=== PATIENT | female | born 1955 | race African-American/Black ===

== ENCOUNTER 2020-08-02 15:57 | Emergency (ER) | payer OTHER, SELFPAY ==
[2020-08-02 16:09] VITALS: BP 128/63; PULSE 78; RESP 16; TEMP 37; O2SAT 99
--- NOTE | 2020-08-02 16:19 | ED.BACK ---
HPI - Back Pain/Injury General Chief Complaint: Urogenital-Female Stated Complaint: r/l side pain Time Seen by Provider: 08/02/20 16:10 History of Present Illness HPI Narrative: Adriana is a 65 yo female with a PMH of renal stones who comes here for both L and R sided back pain. She says it has been going on for months and only happens occasionally mostly in the morning when she is trying to get up out of bed and when she gets moving the pain goes away. Sometimes patient has muscle spasms; she has a primary care physician Related Data Allergies Allergy/AdvReac Type Severity Reaction Status Date / Time No Known Allergies Allergy Verified 08/02/20 16:19 Review of Systems Review of Systems: Narrative: CONSTITUTIONAL: Denies fever, chills, sweats. EYES: Denies visual changes, redness, discharge. ENT: Denies rhinorrhea, congestion, sore throat, otalgia. CARDIOVASCULAR: Denies chest pain, palpitations, edema. RESPIRATORY: Denies dyspnea, wheezing, cough GASTROINTESTINAL: Denies abdominal pain, nausea, vomiting, diarrhea. GENITOURINARY: Denies dysuria, hematuria, abnormal discharge SKIN: Denies rash or itching. NEUROLOGIC: Denies numbness, or focal weakness. PSYCHIATRIC: Denies anxiety or depression. Pain on both sides of the back, primarily in the morning PMFSH Past Medical History Medical History Back pain Family History Family History Other No significant medical problems Social History Social History (Updated 08/02/20 @ 16:23 by Elise Thomas CNP) Smoking status: Never smoker Alcohol intake: never Gender identity (if verbalized by the patient): Female Comments At time of signature, I agree with nursing past medical, surgical, social and family history. There is no relevant family history pertinent to the presenting complaint. Exam Narrative: Exam Narrative: GENERAL: This is a well-nourished, well-developed patient, in mild distress. HEAD: normocephalic, atraumatic. EYES: Sclera clear/white. Vision is grossly intact. EARS: External ears normal, Hearing grossly intact. NOSE: External nose normal without nasal discharge, nares without redness, no rhinorrhea. THROAT: Mucous membranes moist, NECK: Neck supple, non-tender CARDIOVASCULAR: Regular rate and rhythm without murmurs, gallops, or rubs. RESPIRATORY: Clear to auscultation. Breath sounds equal bilaterally. No wheezes, rales, or rhonchi. GASTROINTESTINAL: Abdomen soft, non-tender, SKIN: warm, intact with no suspicious lesions or rash, good texture and turgor. NEURO: awake, alert, and oriented to person, place and time. There were no obvious focal neurologic abnormalities. Steady gait EXTREMITIES: Normal range of motion. BACK: Nontender on palpation without deformity Course Course Emergency Course: Patient comes to [facility] with complaints of bilateral lower pain in the side; it occurs only in the morning and only on occasion UA done no nitrates are leukocytes found, no blood Started on baclofen for muscle pain as there is no indication that she has renal stones or other urinary issues; encourage patient to go to the emergency room or to the primary care physician if symptoms continue she should definitely go to the ER if she develops a fever or severe pain Vital Signs Vital signs: Vital Signs Temperature 98.6 F 08/02/20 16:09 Pulse Rate 78 08/02/20 16:09 Respiratory Rate 16 08/02/20 16:09 Blood Pressure 128/63 08/02/20 16:09 Pulse Oximetry 99 08/02/20 16:09 Temperature 98.6 F 08/02/20 16:09 Pulse Rate 78 08/02/20 16:09 Respiratory Rate 16 08/02/20 16:09 Blood Pressure 128/63 08/02/20 16:09 Pulse Oximetry 99 08/02/20 16:09 MDM - Back Pain/Injury Lab Data Labs: Urine Glucose Negative Reference Range: Negative
== END 2020-08-02 17:00 | disposition home or self-care (01) ==
PROVIDERS: Emergency Provider Nurse Practitioner
DX: R10.9 Unspecified abdominal pain (principal); Z87.442 Personal history of urinary calculi
CPT/HCPCS: 81003; 99213; G0463

== ENCOUNTER 2021-04-06 14:36 | Emergency (ER) | payer OTHER, SELFPAY ==
[2021-04-06 14:43] VITALS: BP 130/57; PULSE 83; RESP 16; TEMP 36.9; O2SAT 98
--- NOTE | 2021-04-06 14:49 | ED.EYEPROB ---
HPI - Eye Problem General Chief complaint: Eye Problems Stated complaint: painful/watery/redness right eye Time Seen by Provider: 04/06/21 14:44 Source: patient and RN notes reviewed Mode of arrival: ambulatory Limitations: no limitations History of Present Illness HPI Narrative: 65-year-old female presents concern for right eye redness, irritation, itching, pain, drainage, crusting. Reports symptoms started 3 to 4 days ago. She denies acute vision changes. She denies injury, trauma, foreign body. She does not wear contact lenses. chief complaint: eye redness Related Data Allergies Allergy/AdvReac Type Severity Reaction Status Date / Time No Known Allergies Allergy Verified 08/02/20 16:19 Review of Systems Review of Systems: CONSTITUTIONAL: Denies malaise, chills, sweats, or fever. EYES: Denies visual changes. Reports right eye redness, irritation, discharge. ENT: Denies rhinorrhea, congestion, sinus pain, otalgia or sore throat. SKIN: Denies rash or itching. NEUROLOGIC: Denies numbness, weakness, or headache. PSYCHIATRIC: Denies anxiety or depression. All systems reviewed & are unremarkable except as noted in HPI and below PMFSH Past Medical History Medical History Back pain Family History Family History Other No significant medical problems Social History Social History (Updated 08/02/20 @ 16:23 by Elise Thomas CNP) Smoking status: Never smoker Alcohol intake: never Gender identity (if verbalized by the patient): Female Comments At time of signature, agree with nursing past medical, surgical, social and family history. There is no relevant family history pertinent to the presenting complaint Exam Narrative: GENERAL: Well-appearing, well-nourished, and in no acute distress. HEAD: Normocephalic, atraumatic. EYES: PERRLA, sclera clear, and EOMI. No nystagmus. Right sclera and conjunctivae injected. Right upper and lower eyelid mildly edematous, no periorbital edema noted. Copious drainage ENT: Nares clear, turbinates pink, no rhinorrhea or epistaxis. Mucous membranes moist. TM pearly espinal with sharp light reflex bilaterally; no tragal tenderness. NECK: Supple. CHEST: No respiratory distress. Speaks in full sentences. HEART: Regular rate and rhythm. SKIN: Warm, dry, no visible rash. NEURO: Alert and oriented x3. PSYCH: Normal mood and affect Course Course Emergency Course: Patient is aware of diagnosis, understands and agrees to treatment plan. Anticipatory guidance given. Patient agrees to follow-up as directed and is aware of reasons to seek care at the emergency department. Portions of this record may have been created with voice recognition software Level of Care: Express Care Visit Vital Signs Vital signs: Vital Signs Temperature 98.4 F 04/06/21 14:43 Pulse Rate 83 04/06/21 14:43 Respiratory Rate 16 04/06/21 14:43 Blood Pressure 130/57 L 04/06/21 14:43 Pulse Oximetry 98 04/06/21 14:43 Temperature 98.4 F 04/06/21 14:43 Pulse Rate 83 04/06/21 14:43 Respiratory Rate 16 04/06/21 14:43 Blood Pressure 130/57 L 04/06/21 14:43 Pulse Oximetry 98 04/06/21 14:43 Reviewed. MDM - Eye Problem MDM Narrative Medical decision making narrative: Consideration of the following conditions may be warranted for the presenting problem, they are not final diagnoses: Bacterial conjunctivitis, allergic conjunctivitis, viral conjunctivitis, foreign body, blepharitis, chalazion, hordeolum, corneal abrasion, preseptal cellulitis, orbital cellulitis. No evidence of proptosis, ophthalmoplegia, vision loss, pain with eye movement. Exam findings show no acute concerns or changes; patient is non-toxic appearing and is in no distress. Patient is appropriate for outpatient treatment and follow-up. Critical Care Time Critical Care Time Critical Care Time: No Disc
== END 2021-04-06 14:53 | disposition home or self-care (01) ==
PROVIDERS: Emergency Provider Nurse Practitioner
DX: H10.9 Unspecified conjunctivitis (principal)
CPT/HCPCS: 99213; G0463

== ENCOUNTER 2021-06-07 17:13 | Emergency (ER) | payer MEDICAID, SELFPAY ==
[2021-06-07 17:24] VITALS: BP 140/69; PULSE 81; RESP 16; TEMP 37.2; O2SAT 99
--- NOTE | 2021-06-07 17:27 | ED.URI ---
HPI - URI/Sore Throat General Chief Complaint: Upper Respiratory Infection Stated Complaint: COUGH/SOB Time Seen by Provider: 06/07/21 17:30 Source: patient, family, RN notes reviewed and old records reviewed Mode of arrival: ambulatory Limitations: no limitations History of Present Illness HPI Narrative: 65-year-old female presents to the [facility] with complaints of cough and intermittent shortness of breath associated with coughing for at least the last 2 weeks. Has tried [id number] products with minimal to no relief. Denies fevers. No abdominal pain or chest pain. Has taken Mucinex with no relief. Related Data Allergies Allergy/AdvReac Type Severity Reaction Status Date / Time No Known Allergies Allergy Verified 06/07/21 17:31 Review of Systems Review of Systems: All systems reviewed & are unremarkable except as noted in HPI and below Constitutional: Constitutional: Reports no additional constitutional complaints, Denies chills, Denies fever(s) and Denies headache(s) Eyes: Eyes: Reports no additional eye complaints ENT: Reports as per HPI, Denies vertigo, Denies dizziness, Denies headache(s), Denies nasal congestion and Denies sore throat Cardiovascular: Cardiovascular: Reports no additional cardiovascular complaints, Denies chest pain, Denies syncope, Denies rapid heart rate and Denies dyspnea Respiratory: Respiratory: Reports as per HPI, Reports cough, Denies dyspnea and Denies wheezing Gastrointestinal: Gastrointestinal: Reports no additional gastrointestinal complaints, Denies abdominal pain, Denies diarrhea, Denies nausea and Denies vomiting Musculoskeletal: Musculoskeletal: Reports no additional musculoskeletal complaints and Denies numbness Integumentary/Breasts: Skin/Breast: Reports system reviewed and no additional complaints, except as docu Neurologic: Reports system reviewed and no additional complaints, except as documented, Denies vertigo, Denies dizziness, Denies syncope, Denies headache(s), Denies focal weakness and Denies numbness Psychiatric: Psychiatric: Reports no additional psychiatric complaints Allergic/Immunologic: Allergic/Immunologic: Reports no additional allergic/immunologic complaints and Denies wheezing PMFSH Past Medical History Medical History Back pain Family History Family History Other No significant medical problems Social History Social History (Reviewed 06/07/21 @ 19:56 by FELIPE Hernández Smoking status: Never smoker Alcohol intake: never Gender identity (if verbalized by the patient): Female Comments At the time of my signature, I reviewed and agree with the nursing past medical, surgical, social, and family history. There is no relevant family history pertinent to the patient complaint. Exam Const: General: cooperative, healthy appearing, no acute distress, well developed and alert Nutritional Appearance: well nourished Orientation/consciousness: patient oriented x3 Limitations: no limitations HENMT: Head: normal to inspection Ears: external ears normal, TM's normal bilaterally and EAC's normal Eyes: Conjunctivae: conjunctivae normal Pupils: Equal, round and reactive pupils present Neck: Neck: normal visual inspection, no lymphadenopathy and no meningeal signs Chest: Chest palpation & inspection: normal inspection of the chest Resp: Effort & Inspection: normal respiratory effort and no use of accessory muscles Auscultation: clear to auscultation bilaterally, no crackles, no rales, no rhonchi and no wheezes Cardio: Rate: regular rate Rhythm: regular rhythm Skin: General skin exam: normal color Rashes: no rashes Wounds: no wounds Neuro: General: patient oriented x3, moves all extremities, no meningeal signs and no focal motor deficits Cranial nerves: Yes Equal, round and reactive pupils present Speech: normal speech Gait exam
== END 2021-06-07 17:50 | disposition home or self-care (01) ==
PROVIDERS: Emergency Provider Nurse Practitioner; PCP Emergency Medicine
DX: J40 Bronchitis, not specified as acute or chronic (principal)
CPT/HCPCS: 99213; G0463

== ENCOUNTER 2021-07-05 17:15 | Emergency (ER) | payer MEDICAID, SELFPAY ==
--- NOTE | ~2021-07-05 | CT_ITS ---
EXAMINATION: CT soft tissue neck w con DATE: 07/05/2021 21:04 INDICATION: Left neck swelling. TECHNIQUE: Computed tomography (CT) of the neck was performed with 75 mL Omnipaque 300 intravenous co ntrast. Automated exposure control and iterative reconstruction technique were employed. The dose-iban gth product was 436.68 mGy-cm. COMPARISON: None FINDINGS: There are nodules in the left thyroid lobe measuring up to 2.6 cm. There are no pathologica lly enlarged lymph nodes. There is 0% stenosis of the proximal internal carotid arteries relative to normal distal artery lumen diameters. The pharynx and larynx are normal. Tooth 30 demonstrates a tye ous lesion and periapical lucencies. There is moderate cervical spondylosis. IMPRESSION: 1. Multinodular goiter. 2. Dental disease. Reviewed, dictated and finalized at location A.
--- NOTE | ~2021-07-05 | XR_ITS ---
EXAMINATION: XR chest 2V DATE: 07/05/2021 20:24 INDICATION: Cough. Left neck swelling and pain. TECHNIQUE: Frontal and lateral views of the chest were obtained. COMPARISON: Chest single view 04/23/2017 FINDINGS: There is no pneumonia, pleural effusion, or pneumothorax. The heart size is normal. IMPRESSION: 1. No acute cardiopulmonary disease. Reviewed, dictated and finalized at location A.
[2021-07-05 17:18] VITALS: BP 127/64; PULSE 80; RESP 14; TEMP 36.6; O2SAT 100
--- NOTE | 2021-07-05 19:11 | ED.NECK ---
HPI - Neck Pain/Injury General Chief Complaint: Neck Pain/Injury Stated Complaint: hard time swallowing, allergies really bad Time Seen by Provider: 07/05/21 18:21 Source: patient Mode of arrival: ambulatory History of Present Illness HPI Narrative: 66 year old female presents today with complaints of swelling to the left neck. Patient states 2 weeks ago she had bronchitis which resolved and today woke up with a sore throat. She saw her primary today who ordered a chest xray. After leaving the office she noticed swelling to the left of her neck and still with pain. Patient denies SOB but does endorse pain with swallowing. She endorses nasal drainage and cough too but denies fevers, body aches, and chills. Related Data Allergies Allergy/AdvReac Type Severity Reaction Status Date / Time No Known Allergies Allergy Verified 06/07/21 17:31 Review of Systems Review of Systems: CONSTITUTIONAL: Denies fever, chills, or sweats. EYES: Denies visual changes, redness, or discharge. ENT: Sore throat, pain with swallowing, swelling to left side of throat. Rhinorrhea, congestion, sore throat, or otalgia. CARDIOVASCULAR: Denies chest pain, palpitations, or edema. RESPIRATORY: Denies cough or dyspnea. GASTROINTESTINAL: Denies abdominal pain, nausea, vomiting, or diarrhea. GENITOURINARY: Denies dysuria or hematuria. SKIN: Denies rash or itching. MUSCULOSKELETAL: Denies back pain, joint pain, or myalgia. NEUROLOGIC: Denies headache, numbness, dizziness, or weakness. PSYCHIATRIC: Denies anxiety or depression. PMFSH Past Medical History Medical History Back pain Family History Family History Other No significant medical problems Social History Social History Smoking status: Never smoker Alcohol intake: never Gender identity (if verbalized by the patient): Female Exam Narrative: GENERAL: Well-appearing, well-nourished, and in no acute distress. HEAD: Normocephalic, atraumatic. EYES: PERRLA and EOMI. ENT: Nares clear, no rhinorrhea or epistaxis. Mucous membranes moist. Oropharynx without tonsillar hypertrophy exudate or other lesions. Bilateral TMs pearly espinal nonbulging NECK: Supple. Swelling noted left of the trachea. No carotid bruits or JVD CHEST: Clear to auscultation. No respiratory distress. No wheezes rales or rhonchi HEART: Regular rate and rhythm. No murmur heard. Normal peripheral pulses. ABDOMEN: Soft, nontender, nondistended, normal active bowel sounds. EXTREMITIES: Normal range of motion. No edema. SKIN: Warm, dry, no rash. NEURO: No focal deficits. Alert and oriented x3. PSYCH: Normal mood and affect. Course Course Emergency Course: Patient without issue during stay. Ct and labs reviewed with patient and aware of need for follow up with primary on Thursday. Dr. Guido notified of need for follow up and labs. He will see patient on in office for further evaluation. Vital Signs Vital signs: Vital Signs Temperature 36.6 C 07/05/21 17:18 Pulse Rate 80 07/05/21 17:18 Respiratory Rate 14 07/05/21 17:18 Blood Pressure 127/64 07/05/21 17:18 Pulse Oximetry 100 07/05/21 17:18 Temperature 36.6 C 07/05/21 17:18 Pulse Rate 80 07/05/21 22:50 Respiratory Rate 18 07/05/21 22:50 Blood Pressure 130/73 07/05/21 22:50 Pulse Oximetry 96 07/05/21 22:50 MDM - Neck Pain/Injury Lab Data Result diagrams: 07/05/21 19:23 07/05/21 20:13 Labs: Lab Results 07/05/21 07/05/21 07/05/21 Range/Units 19:23 19:23 19:23 WBC 6.9 (4.5-10.0) K/mm3 RBC 4.14 L (4.2-5.4) M/mm3 Hgb 12.1 (12.0-15.0) g/dL Hct 37.5 (37.0-47.0) % MCV 90.6 (80-100) fl MCH 29.2 (26-34) pg MCHC 32.3 (32-36) g/dl RDW 13.2 (11.5-14.5) % Plt Count 301 (150-375) k/mm3 MPV 10.4
[2021-07-05 19:28] LABS: Basophils Absolute Auto 0.1 K/mm3 (0.0-0.1); Eosinophils Absolute Auto 0.2 K/mm3 (0-0.3); Eosinophils Percent Auto 2.2 % (0-4.4); Hematocrit 37.5 % (37.0-47.0); Hemoglobin 12.1 g/dL (12.0-15.0); Immature Granulocyte Absolute 0.01 K/mm3 (0.00-0.031); Immature Granulocyte Percent A 0.1 % (0-0.5); Lymphocytes Absolute Auto 3.29 K/mm3 (0.9-3.2); Lymphocytes Percent Auto 47.5 % (18.3-44.2); Mean Corpuscular HGB Conc 32.3 g/dl (32-36); Mean Corpuscular Hemoglobin 29.2 pg (26-34); Mean Corpuscular Volume 90.6 fl (80-100); Mean Platelet Volume 10.4 fl (7.4-10.4); Monocytes Absolute Auto 0.6 K/mm3 (0.1-0.6); Monocytes Percent Auto 8.4 % (2.6-8.5); Neutrophils Absolute Auto 2.8 K/mm3 (1.3-6.7); Neutrophils Percent Auto 40.8 % (45.5-73.1); Platelet Count Result 301 k/mm3 (150-375); Red Blood Count 4.14 M/mm3 (4.2-5.4); Red Cell Distribution Width 13.2 % (11.5-14.5); White Blood Count 6.9 K/mm3 (4.5-10.0)
[2021-07-05] MEDS: SODIUM CHLORIDE 0.9% IV 1,000 ML 999 ML IV CONT (19:56)
[2021-07-05 20:30] LABS: Alanine Aminotransferase 19 U/L (6-35); Albumin Level 4.1 g/dL (3.5-5.1); Alkaline Phosphatase 89 U/L (38-126); Anion Gap 1 mmol/L (8-16); Aspartate Amino Transferase 25 U/L (14-36); Bilirubin,Total 0.6 mg/dL (0.2-1.3); Blood Urea Nitrogen 13 mg/dL (7-17); Carbon Dioxide 29 mmol/L (22-30); Chloride 109 mmol/L (98-107); Estimated CRCL calculation 68 ml/min; Estimated Glomerular Filt Rate > 60; Glucose 94 mg/dL (65-110); Potassium 4.5 mmol/L (3.4-5.0); Sodium 139 mmol/L (137-145)
[2021-07-05 21:30] LABS: Total Triiodothyronine (T3) 1.29 NG/ML (0.97-1.69)
[2021-07-05 22:50] VITALS: BP 130/73; PULSE 80; RESP 18; O2SAT 96
== END 2021-07-05 22:51 | disposition home or self-care (01) ==
PROVIDERS: Emergency Provider Nurse Practitioner Family; PCP Emergency Medicine
DX: E05.00 Thyrotoxicosis with diffuse goiter without thyrotoxic crisis or storm (principal)
CPT/HCPCS: 36415; 70491; 71046; 80053; 84439; 84443; 84480; 85025; 96360; 96361; 99284; J7030; Q9967

== ENCOUNTER 2021-07-16 14:26 | Outpatient (CLI) | payer MEDICAID, SELFPAY ==
--- NOTE | ~2021-07-16 | MM_ITS ---
EXAMINATION: MM screening mo BI w toma HISTORY: Screening mammogram TECHNIQUE: Craniocaudal and mediolateral oblique 3-D tomosynthesis images were obtained and synthetic 2-D images were generated. CAD analysis was submitted and interpreted. COMPARISON: No prior mammogram is available for comparison at this institution. BREAST PARENCHYMAL COMPOSITION: There are scattered areas of fibroglandular density. FINDINGS: There is no evidence of suspicious mass, calcification, or architectural distortion to sugg est malignancy in either breast. IMPRESSION: 1. No mammographic evidence of malignancy. 2. Recommend routine screening mammography in one year. BI-RADS Category 1: Negative Reviewed, dictated and finalized at location A.
== END 2021-07-16 14:27 | disposition home or self-care (01) ==
LOC: ANHIMG 14:27
PROVIDERS: PCP Emergency Medicine; Visit Provider Emergency Medicine
DX: Z12.31 Encounter for screening mammogram for malignant neoplasm of breast (principal)
CPT/HCPCS: 77063; 77067

== ENCOUNTER 2022-02-28 18:14 | Emergency (ER) | payer MEDICAID, SELFPAY ==
[2022-02-28 18:56] VITALS: BP 127/53; PULSE 85; RESP 16; TEMP 36.5; O2SAT 99
--- NOTE | 2022-02-28 19:44 | ED.URI ---
HPI - URI/Sore Throat General Chief Complaint: Upper Respiratory Infection Stated Complaint: uri Time Seen by Provider: 02/28/22 19:44 Source: patient, RN notes reviewed and old records reviewed Mode of arrival: ambulatory Limitations: no limitations History of Present Illness HPI Narrative: 2 day history of upper respiratory symptoms with frontal headache, nasal sinus pressure, cough, sore throat, eyes hurt and chills, generalized body aches. Patient has not had any COVID vaccinations nor has she had flu shot. Patient has been taking TheraFlu for her symptoms denies any known fevers. Patient denies any nausea or vomiting or any diarrhea. MD elicited complaint: sore throat, nasal congestion, sinus pain and other (headache, eyes hurt) Onset (ago): day(s) (2) Able to tolerate fluids by mouth: Yes Treatments prior to arrival: other (Theraflu) Related Data Home Medications Medication Instructions Recorded Confirmed No Home Medications 02/28/22 02/28/22 Allergies Allergy/AdvReac Type Severity Reaction Status Date / Time No Known Allergies Allergy Verified 02/28/22 18:39 Review of Systems Review of Systems: CONSTITUTIONAL: Reports malaise, chills, sweats, or fever. EYES: Denies visual changes, redness, or discharge. ENT: Reports rhinorrhea, congestion, sinus pain, no otalgia positive for sore throat. CARDIOVASCULAR: Denies chest pain, palpitations, or edema. RESPIRATORY: Reports cough.? Denies dyspnea. GASTROINTESTINAL: Denies abdominal pain, nausea, vomiting, diarrhea SKIN: Denies rash or itching. MUSCULOSKELETAL: reports myalgia. NEUROLOGIC: Reports headache. All systems reviewed & are unremarkable except as noted in HPI and below PMFSH Past Medical History Medical History (Updated 03/06/22 @ 20:46 by Roberta Marroquin NP) Back pain Kidney stones Family History Family History Other No significant medical problems Social History Social History Smoking status: Never smoker Alcohol intake: never Gender identity (if verbalized by the patient): Female Comments At time of signature, agree with nursing past medical, surgical, social and family history. There is no relevant family history pertinent to the presenting complaint Exam Narrative: GENERAL: Well-appearing, well-nourished, and in no acute distress. HEAD: Normocephalic EYES: PERRLA, conjunctivae clear, reports eyes hurt ENT: Nares clear, turbinates edematous and erythematous, clear discharge.sinus pressure with headache pain,Mucous membranes moist. TM pearly espinal with dull light reflex bilaterally; no tragal tenderness. Oropharynx erythematous without lesions. Tonsils not enlarged and without exudate, no drooling, no hoarseness, no trismus, uvula midline. NECK: Supple. No lymphadenopathy CHEST: Clear to auscultation, breath sounds equal. No wheezing, rhonchi, rales, or stridor. No respiratory distress, speaks in full sentences.cough noted with SAO2 99% on room air HEART: Regular rate and rhythm. No murmur heard. SKIN: Warm, dry, no rash. NEURO: Alert and oriented x3. PSYCH: Normal mood and affect Course Course Emergency Course: Patient is aware of diagnosis, understands and agrees to treatment plan.? Anticipatory guidance given.? Patient agrees to follow-up as directed and is aware of reasons to seek care at the emergency department. Portions of this record may have been created with voice recognition software Level of Care: Express Care Visit Vital Signs Vital signs: Vital Signs Temperature 36.5 C 02/28/22 18:56 Pulse Rate 85 02/28/22 18:56 Respiratory Rate 16 02/28/22 18:56 Blood Pressure 127/53 L 02/28/22 18:56 Pulse Oximetry 99 02/28/22 18:56 Oxygen Delivery Room Air 02/28/22 18:56 Temperature 36.5 C 02/28/22 18:56 Pulse Rate 85 02/28/22 18:56 Respiratory Rate
== END 2022-02-28 20:13 | disposition home or self-care (01) ==
PROVIDERS: Emergency Provider Registered Nurse; PCP Emergency Medicine
DX: U07.1 COVID-19 (principal)
CPT/HCPCS: 87426; 87804; 99213; C9803; G0463

== ENCOUNTER 2022-05-30 16:31 | Emergency (ER) | payer MEDICARE, MEDICAID, SELFPAY ==
--- NOTE | ~2022-05-30 | XR_ITS ---
XR chest 2V DATE: 05/30/2022 16:59 INDICATION: Pain between shoulder blades for 3 weeks. Nonsmoker. TECHNIQUE: 2 views COMPARISON: 07/05/2021 PA and lateral chest FINDINGS: Normal heart size. No hilar or mediastinal enlargement. No pulmonary infiltrate or consolid ation, pleural effusion or pulmonary vascular congestion or pneumothorax. Included skeletal structures are unremarkable. There is a scalp location overlying left kidney. Cannot exclude nephrolithiasis. IMPRESSION: No active cardiopulmonary disease Reviewed, dictated and finalized at location A.
--- NOTE | 2022-05-30 16:32 | ED.BACK ---
HPI - Back Pain/Injury General Chief Complaint: Back Pain/Injury Stated Complaint: Upper Back Pain Time Seen by Provider: 05/30/22 16:32 Source: patient Mode of arrival: ambulatory Limitations: no limitations History of Present Illness HPI Narrative: Ms. Harmon is a 66-year-old female patient presenting to the clinic today with complaints of mid upper back pain off and on x3 weeks. She reports the pain is an aching pain that comes and goes. States is worse when she gets up in the morning and worse with deep inspiration and movement. She denies any shortness of breath but does state that the pain radiates into her anterior left chest. States she has been doing some heavy lifting/moving. She denies cough. Denies fever or chills. Denies abdomen pain or urinary symptoms Related Data Allergies Allergy/AdvReac Type Severity Reaction Status Date / Time No Known Allergies Allergy Verified 05/30/22 16:34 Review of Systems Review of Systems: Pertinent positives per HPI. Patient denies any fever, chills, rash, headache, visual changes, dizziness, cough, runny nose, sore throat, shortness of breath, chest pain, palpitations, nausea, vomiting, diarrhea, constipation, abdominal pain, or any urinary issues. PMFSH Past Medical History Medical History Back pain Kidney stones Family History Family History Other No significant medical problems Social History Social History Smoking status: Never smoker Alcohol intake: never Gender identity (if verbalized by the patient): Female Comments At the time of my signature, I reviewed and agree with the nursing past medical, surgical, social, and family history. There is no relevant family history pertinent to the patient complaint. Exam Narrative: General: Well-developed, well nourished, in no apparent distress Head: Normocephalic, atraumatic. Cardio: Regular rate and rhythm, s1 and s2 normal, no murmur appreciated. Resp: Clear to auscultation bilaterally, no rhonchi, rales, wheezing or rubs. Musculoskeletal: No deformity, non-tender to palpation, pain reproduced with bending and taking deep breaths over the mid thoracic spine just above the bra line, grossly normal range of motion, muscle strength strong and equal, peripheral pulse strong, no edema, no cyanosis, normal gait and station Course Course Emergency Course: Portions of this record may have been created with voice recognition software. Level of Care: [facility] Visit Vital Signs Vital signs: Vital Signs Temperature 36.7 C 05/30/22 16:39 Pulse Rate 73 05/30/22 16:39 Respiratory Rate 18 05/30/22 16:39 Blood Pressure 122/52 L 05/30/22 16:39 Pulse Oximetry 97 05/30/22 16:39 Oxygen Delivery Room Air 05/30/22 16:39 Temperature 36.7 C 05/30/22 16:39 Pulse Rate 73 05/30/22 16:39 Respiratory Rate 18 05/30/22 16:39 Blood Pressure 122/52 L 05/30/22 16:39 Pulse Oximetry 97 05/30/22 16:39 Oxygen Delivery Room Air 05/30/22 16:39 Vital signs reviewed MDM - Back Pain/Injury MDM Narrative Medical decision making narrative: At the time of visit patient is resting comfortably on the exam table. EKG and chest x-ray were performed. EKG was normal sinus rhythm without ectopy. Chest x-ray is negative for any sign of pneumonia however there may be some some stones in the kidney. Supportive measures were discussed with the patient she voiced understanding of discharge instructions and agrees to treatment plan. Differential Diagnosis Differential diagnosis: Likely lumbar radiculopathy, sciatica, strain of lumbar region, pyelonephritis, thoracic back pain and other (Kidney stones,) Imaging Data Radiologist's impression: [facility] [address] [place] [address] [phone]
[2022-05-30 16:39] VITALS: BP 122/52; PULSE 73; RESP 18; TEMP 36.7; O2SAT 97
--- NOTE | 2022-05-30 16:43 | ECG_ITS ---
Measurements Intervals [place] Rate: 66 P: 49 ID: 170 QRS: 16 QRSD: 81 T: 29 QT: 377 QTc: 395 Interpretive Statements SINUS BRADYCARDIA BORDERLINE ECG NO PREVIOUS ECG AVAILABLE FOR COMPARISON Electronically Signed On 05-31-2022 15:30:40 CDT by Omar Chan M.D.
== END 2022-05-30 17:28 | disposition home or self-care (01) ==
PROVIDERS: Emergency Provider Nurse Practitioner Family; PCP Emergency Medicine
DX: S46.819A Strain of other muscles, fascia and tendons at shoulder and upper arm level, unspecified arm, initial encounter (principal); M54.6 Pain in thoracic spine; N20.0 Calculus of kidney; X58.XXXA Exposure to other specified factors, initial encounter
CPT/HCPCS: 71046; 93005; 99213; G0463

== ENCOUNTER 2022-07-22 14:17 | Emergency (ER) | payer MEDICARE, MEDICAID, SELFPAY ==
--- NOTE | 2022-07-22 14:20 | PC.NURSE ---
[place] poison control called r/t Arm and Hammer pod contact to eye Make sure contacts are out irrigation for 5 mins rest the eye fluorecin stain
[2022-07-22 14:46] VITALS: BP 167/84; PULSE 87; RESP 16; TEMP 36.2; O2SAT 100
--- NOTE | 2022-07-22 16:00 | ED.EYEPROB ---
HPI - Eye Problem General Chief complaint: Eye Problems Stated complaint: DETERGENT IN EYE Time Seen by Provider: 07/22/22 15:29 History of Present Illness HPI Narrative: 67-year-old female presented the ED for evaluation of bilateral eye pain. Patient states that just prior to arrival she had arm and Hammer detergent pod exploded in her face while doing laundry. Patient did irrigate her eyes prior to arrival. Patient does complain of bilateral eye pain. Bleeding control was consulted and they recommended to continue eye irrigation. Related Data Allergies Allergy/AdvReac Type Severity Reaction Status Date / Time No Known Allergies Allergy Verified 07/22/22 15:01 Review of Systems Review of Systems: All systems reviewed & are unremarkable except as noted in HPI and below PMFSH Past Medical History Medical History Back pain Kidney stones Family History Family History Other No significant medical problems Social History Social History Smoking status: Never smoker Alcohol intake: never Gender identity (if verbalized by the patient): Female Exam Narrative: APPEARANCE: Well appearing, no pain, no distress, well-nourished. HEAD: normocephalic, atraumatic. EYES: PERRLA/EOMI, conjunctival injection, no fluorescein uptake, no corneal injury. NOSE: Normal no drainage NECK: Supple. No adenopathy, no masses. RESPIRATORY: Airway patent, respirations nonlabored. Clear to auscultation bilaterally, no rales, rhonchi, wheezing. CARDIOVASCULAR: Regular rate and rhythm without murmurs rubs or gallops. ABDOMINAL: Soft, nontender, nondistended, normal bowel sounds MUSCULOSKELETAL: Moves all extremities. Strength/ROM intact, No edema, No calf tenderness. NEURO: Alert. Cranial nerves II through XII intact. Grossly intact SKIN: Warm, dry. Normal Color Course Course Emergency Course: 67-year-old female presented ED for evaluation of eye pain after having a detergent pod exploded in her face. No corneal injury seen on bedside exam with Fam lamp. Patient's eyes were numbed with tetracaine and patient being irrigated with Shaun lenses. On reevaluation patient does feel improved. Patient had no fluorescein uptake on the Fam lamp. Patient was advised to use natural tears, patient does not wear contacts. Patient was encouraged of close follow-up with ophthalmology. All questions and concerns were addressed. Patient was comfortable to plan for discharge and close follow-up. Poison control was consulted. Vital Signs Vital signs: Vital Signs Temperature 97.2 F L 07/22/22 14:46 Pulse Rate 87 07/22/22 14:46 Respiratory Rate 16 07/22/22 14:46 Blood Pressure 167/84 H 07/22/22 14:46 Pulse Oximetry 100 07/22/22 14:46 Oxygen Delivery Room Air 07/22/22 14:46 Temperature 97.2 F L 07/22/22 14:46 Pulse Rate 82 07/22/22 18:11 Respiratory Rate 16 07/22/22 18:11 Blood Pressure 144/86 H 07/22/22 18:11 Pulse Oximetry 98 07/22/22 18:11 Oxygen Delivery Room Air 07/22/22 14:46 MDM - Eye Problem Differential Diagnosis Differential diagnosis: Likely corneal abrasion, conjunctivitis and acute iritis Discharge Plan Discharge Clinical Impression: Chemical exposure of eye Patient Disposition: Home, Self-Care Condition: Stable Instructions: Antibiotic Form Additional Instructions: Use natural tears to help moisturize her eyes. Have close follow-up with ophthalmology. If you have any worsening symptoms then please call or return to the emergency department. Prescriptions: No Action cyclobenzaprine 10 mg tablet 10 mg PO Q8H PRN (Reason: muscle spasm) 7 Days Qty: 21 0RF prednisone 20 mg tablet 40 mg PO DAILY 5 Days Qty: 10 0RF Follow-up/Referrals: [facility] [O
[2022-07-22 18:11] VITALS: BP 144/86; PULSE 82; RESP 16; O2SAT 98
== END 2022-07-22 18:17 | disposition home or self-care (01) ==
PROVIDERS: Emergency Provider Emergency Medicine; PCP Emergency Medicine
DX: T55.1X1A Toxic effect of detergents, accidental (unintentional), initial encounter (principal); H57.13 Ocular pain, bilateral; Z87.442 Personal history of urinary calculi
CPT/HCPCS: 99283

== ENCOUNTER 2024-05-08 16:17 | Emergency (ER) | payer OTHER, SELFPAY ==
--- NOTE | ~2024-05-08 | XR_ITS ---
EXAM: XR hand RT min 3V DATE: 05/08/2024 16:38 HISTORY: thumb, 1st metacarpal pain . COMPARISON: None available. FINDINGS: Normal mineralization. No fracture or dislocation. No lytic or blastic lesion. Mild scatte red degenerative change. No erosion or periosteal change. Soft tissues within normal limits. IMPRESSION: No acute osseous finding in the right hand. Reviewed, dictated and finalized at location K.
[2024-05-08 16:30] VITALS: BP 122/51; PULSE 74; RESP 19; TEMP 36.6; O2SAT 98
--- NOTE | 2024-05-08 16:31 | ED.UPPEXIN ---
HPI - Extremity Injury (Upper) General Chief Complaint: Extremity Injury, Upper Stated Complaint: Right Hand Thumb/Arm Pain Time Seen by Provider: 05/08/24 16:31 Source: patient Mode of arrival: ambulatory Limitations: no limitations History of Present Illness HPI narrative: 68 yo F presents with pain to R thumb. Pt was playing with her dog and tripped and fell, causing R thumb to hyperextend. Pain worse with movement. Mild swelling noted. CMS intact. Did not hit head. All systems reviewed and negative except as noted above. Related Data Home Medications ?Medication ?Instructions ?Recorded ?Confirmed ?Last Taken ?Type No Home Medications 05/08/24 Unknown History Allergies Allergy/AdvReac Type Severity Reaction Status Date / Time No Known Allergies Allergy Verified 05/08/24 16:22 Review of Systems Review of Systems: CONSTITUTIONAL: Denies fever, chills, or sweats. EYES: Denies visual changes, redness, or discharge. ENT: Denies rhinorrhea, congestion, sore throat, or otalgia. CARDIOVASCULAR: Denies chest pain, palpitations, or edema. RESPIRATORY: Denies cough or dyspnea. GASTROINTESTINAL: Denies abdominal pain, nausea, vomiting, or diarrhea. GENITOURINARY: Denies dysuria or hematuria. SKIN: Denies rash or itching. MUSCULOSKELETAL: Denies back pain, joint pain, or myalgia. Reports pain to right thumb with swelling. NEUROLOGIC: Denies headache, numbness, or weakness. PSYCHIATRIC: Denies anxiety or depression. All other systems reviewed are negative, except as documented in HPI. PMFSH Past Medical History Medical History Back pain Kidney stones Family History Family History Other No significant medical problems Social History Social History Smoking status: Never smoker Alcohol intake: never Gender identity (if verbalized by the patient): Female Comments At time of signature, agree with nursing past medical, surgical, social and family history. There is no relevant family history pertinent to the presenting complaint. Exam Narrative: GENERAL: This is a well-nourished, well-developed patient, in no apparent distress. HEAD: normocephalic, atraumatic. EYES: PERRL. Sclera clear/white. Vision is grossly intact. EARS: External ears normal NOSE: External nose normal NECK: Neck supple, non-tender without lymphadenopathy, masses or thyromegaly. CARDIOVASCULAR: Regular rate and rhythm without murmurs, gallops, or rubs. RESPIRATORY: Clear to auscultation. Breath sounds equal bilaterally. No wheezes, rales, or rhonchi. SKIN: warm, Dry, intact with no suspicious lesions or rash, good texture and turgor. NEURO: awake, alert, and oriented to person, place and time. There were no obvious focal neurologic abnormalities. EXTREMITIES: tender to R thumb and 1st metacarpal, mild swelling noted. no deformity. ROM decreased due to pain. Course Course Level of Care: Express Care Visit Vital Signs Vital signs: Vital Signs Temperature 36.6 C 05/08/24 16:30 Pulse Rate 74 05/08/24 16:30 Respiratory Rate 19 05/08/24 16:30 Blood Pressure 122/51 L 05/08/24 16:30 Pulse Oximetry 98 05/08/24 16:30 Oxygen Delivery Room Air 05/08/24 16:30 Temperature 36.6 C 05/08/24 16:30 Pulse Rate 74 05/08/24 16:30 Respiratory Rate 19 05/08/24 16:30 Blood Pressure 122/51 L 05/08/24 16:30 Pulse Oximetry 98 05/08/24 16:30 Oxygen Delivery Room Air 05/08/24 16:30 Reviewed MDM - Extremity Injury (Upper) MDM Narrative Medical decision making narrative: x-ray of right hand negative for fracture. Discussed results with patient. Patient placed in [place] wrap. Recommend follow-up with primary care physician if pain is not. Neurovascularly Intact at time of discharge. Please be advised this is a medical document. It is intended for [id number] communication. It is written in medical language and may contain unfamiliar abbreviations or verbiage. Medical documents are intended to carry relevant information, facts as evident, and the clinical opinion of the practitioner at the time of the encounter. This report may have been done utilizing a voice recognition system. Attempts have been made to correct errors. However, there may be uncorrected grammatical, spelling, and recognition errors present. The file time of this note does not necessarily represent the time of service. Imaging Data My impression: agree with radiologist Radiologist's impression: EXAM: XR hand RT min 3V DATE: 05/08/2024 16:38 HISTORY: thumb, 1st metacarpal pain . COMPARISON: None available. FINDINGS: Normal mineralization. No fracture or dislocation. No lytic or blastic lesion. Mild scattered degenerative change. No erosion or periosteal change. Soft tissues within normal limits. IMPRESSION: No acute osseous finding in the right hand. Discharge Plan Discharge Clinical Impression: Sprain of hand, thumb, right Qualifiers: Encounter type: initial encounter Sprain of finger site: unspecified site Qualified Code(s): S63.601A - Unspecified sprain of right thumb, initial encounter Patient Disposition: Home, Self-Care Condition: Stable Instructions: Finger Sprain (ED) Additional Instructions: The x-ray of your right hand and was negative for fracture. take ibuprofen or Tylenol every 6-8 hours as needed for pain. Elevate when at rest. Follow-up with your primary care physician if pain not improving in the next 3-4 weeks. Patient Language: Divehi Prescriptions: No Action No Home Medications Follow-up/Referrals: PHYSICIAN,DEPUTY DIRECTOR OF NURSING [Primary Care Provider] - Time of Disposition: 17:34
== END 2024-05-08 17:38 | disposition home or self-care (01) ==
PROVIDERS: Emergency Provider Nurse Practitioner Family
DX: S63.601A Unspecified sprain of right thumb, initial encounter (principal); W01.0XXA Fall on same level from slipping, tripping and stumbling without subsequent striking against object, initial encounter
CPT/HCPCS: 73130; 99213; G0463

== ENCOUNTER 2024-10-02 12:13 | Emergency (ER) | payer OTHER, SELFPAY ==
[2024-10-02 12:22] VITALS: BP 137/62; PULSE 72; RESP 16; TEMP 36.9; O2SAT 97
--- NOTE | 2024-10-02 13:14 | ED.SKABFB ---
HPI - Skin/Abscess/Foreign Bdy General Chief complaint: Skin/Abscess/Foreign Body Stated complaint: stung by wasp Time Seen by Provider: 10/02/24 13:00 Source: patient and RN notes reviewed Mode of arrival: ambulatory Limitations: no limitations History of Present Illness HPI narrative: 69-year-old female presents Express Care complaining of what is being to her right lower leg and left upper flank. Patient says she was stung 2 days ago. Since then patient noticed increased redness, swelling, and itchiness to the areas. Patient has only been trying cold compresses without relief. Patient denies any fevers, body aches, chills, nausea, vomiting, drainage, or any other symptoms. Patient denies any difficulty breathing, wheezing, swelling to her face, lips, tongue, throat, or neck. Related Data Allergies Allergy/AdvReac Type Severity Reaction Status Date / Time No Known Allergies Allergy Verified 10/02/24 12:20 Review of Systems Review of Systems: CONSTITUTIONAL: Denies fever, chills, or sweats. EYES: Denies visual changes, redness, or discharge. ENT: Denies rhinorrhea, congestion, swelling, sore throat, difficulty clearing secretions, or otalgia. CARDIOVASCULAR: Denies chest pain, palpitations, or edema. RESPIRATORY: Denies cough, wheezing, or dyspnea. GASTROINTESTINAL: Denies abdominal pain, nausea, vomiting, or diarrhea. GENITOURINARY: Denies dysuria or hematuria. SKIN: Positive for rash and itching. MUSCULOSKELETAL: Denies back pain, joint pain, or myalgia. NEUROLOGIC: Denies headache, numbness, or weakness. PSYCHIATRIC: Denies anxiety or depression. All other systems reviewed are negative, except as documented in HPI. [facility] Past Medical History Medical History Kidney stones Back pain Family History Family History Other No significant medical problems Social History Social History Smoking status: Never smoker Alcohol intake: never Gender identity (if verbalized by the patient): Female Comments At the time of my signature, I reviewed and agree with the nursing past medical, surgical, social, and family history. There is no relevant family history pertinent to the patient complaint. Exam Narrative: GENERAL: This is a well-nourished, well-developed adult, in no apparent distress. They are non ill-appearing, nontoxic appearing. HEAD: normocephalic, atraumatic. EYES: Sclera clear/white. Conjunctiva normal. Vision is grossly intact. Extraocular movements intact EARS: External ears normal, Hearing grossly intact. NOSE: External nose normal THROAT: Mucous membranes moist, NECK: Neck supple, CARDIOVASCULAR: Regular rate and rhythm RESPIRATORY: Respiratory rate normal, respiratory effort nonlabored, no respiratory distress SKIN: Right thigh: Area of erythema and swelling to the distal thigh. Puncture wound present unclear if stating her is present. It is indurated, nontender, not hot to touch. It is pruritic No exudate, or area of fluctuance. Left upper flank: Area of erythema and swelling present, no obvious puncture wound. Is not indurated, nontender not hot to touch. Exudate or area of fluctuance. It is pruritic NEURO: awake, alert, and oriented to person, place and time. There were no obvious focal neurologic abnormalities. EXTREMITIES: No joint tenderness, effusion, or edema noted. Course Course Emergency Course: Portions of this record may have been created with voice recognition software Level of Care: Express Care Visit Vital Signs Vital signs: Vital Signs Temperature 98.4 F 10/02/24 12:22 Pulse Rate 72 10/02/24 12:22 Respiratory Rate 16 10/02/24 12:22 Blood Pressure 137/62 10/02/24 12:22 Pulse Oximetry 97 10/02/24 12:22 Oxygen Delivery Room Air 10/02/24 12:22 Temperature 98.4 F 10/02/24 12:22 Pulse Rate 72 10/02/24 12:22 Respiratory Rate 16 10/02/24 12:22 Blood Pressure 137/62 10/02/24 12:22 Pulse Oximetry 97 10/02/24 12:22 Oxygen Delivery Room Air 10/02/24 12:22 Reviewed MDM - Skin/Abscess/Foreign Bdy MDM Narrative Medical decision making narrative: Assess puncture wound on right thigh for intact stinger with forceps, no retained foreign body or stinger are identified. Patient likely has allergic reaction to wasp stings. Will prescribe triamcinolone cream. Discussed physical exam findings. Advised supportive measures and signs/symptoms to go to the ER. Pt is appropriate for outpt treatment and f/u. Differential Diagnosis Differential diagnosis: Likely cellulitis, contact dermatitis and other (Wasp sting, allergic reaction) Critical Care Time Critical Care Time Critical Care Time: No Discharge Plan Discharge Clinical Impression: Allergic reaction to wasp sting Patient Disposition: Home Condition: Stable Instructions: Antibiotic Form, Insect Bite or Sting (ED) Additional Instructions: Use the triamcinolone cream as directed. You may use cold compresses a few times a day to help with swelling. You may use calamine lotion, camphor,, Benadryl cream as needed for itchiness symptoms. You may also take Zyrtec or Claritin as needed for allergy or itchiness symptoms. Follow instructions on the bottles. Follow-up PCP in 3-5 days. If you develop any worsening redness, swelling, discharge, fevers, breathing problems, or any other concerns please go to the ER immediately. Patient Language: [place] Prescriptions: New triamcinolone acetonide 0.5 % cream 1 applic topical BID 7 Days Qty: 15 0RF Rx Instructions: apply to affected area Follow-up/Referrals: Misha,MARLENE Boyd [Primary Care Provider] - Time of Disposition: 13:13
== END 2024-10-02 13:19 | disposition home or self-care (01) ==
PROVIDERS: PCP Nurse Practitioner
DX: T63.461A Toxic effect of venom of wasps, accidental (unintentional), initial encounter (principal)
CPT/HCPCS: 99213; G0463